=== PATIENT | male | born 1985 | race African-American/Black ===

== ENCOUNTER 2018-11-16 23:21 | Emergency (ER) | payer OTHER ==
[~2018-11-16] VITALS: Ht 167.6 cm; Wt 68.2 kg
[2018-11-16 23:36] VITALS: BP 108/62; TEMP 98.7
[2018-11-17 00:50] VITALS: PULSE 70
== END 2018-11-17 00:50 | disposition home or self-care (01) ==
LOC: COL.ER 23:21
DX: J10.1 Influenza due to other identified influenza virus with other respiratory manifestations (principal); F17.210 Nicotine dependence, cigarettes, uncomplicated

== ENCOUNTER 2022-04-04 08:33 | Emergency (ER) | payer BC ==
[~2022-04-04] VITALS: Ht 167.6 cm; Wt 81.8 kg
[2022-04-04 08:39] VITALS: TEMP 98.5
[2022-04-04] MEDS ORDERED: NORCO 325 MG-51 TAB PO (12:34)
[2022-04-04] MEDS ORDERED: MEDROL 4MG DOSPA4 MG PO (12:34)
[2022-04-04 12:45] VITALS: BP 105/77; PULSE 51
== END 2022-04-04 12:45 | disposition home or self-care (01) ==
LOC: COL.ER 08:33
DX: R20.2 Paresthesia of skin (principal); Z28.310 Unvaccinated for COVID-19; Z87.891 Personal history of nicotine dependence